=== PATIENT | female | born 1955 | race African-American/Black ===

== ENCOUNTER → 2016-09-26 | Day surgery (SDC) | payer BC ==
[~2016-09-26] MED LIST: ASPIRIN81 M2 PO; BYSTOLIC5 MG PO; FISH OIL 1,2001 CAP PO; LOTREL 10-20 M1 EACH; MULTI VITAMIN1 EACH PO; PROBIOTIC1 EAC1 PO; VITAMIN B12-FO1 EACH PO; WELLBUTRIN PO
--- NOTE | ~2016-09-26 | OR ---
Unit #: [id number] #: [id number] Patient: SATHYA PALMA [id number] [facility]. [place], [place] [address] [id number] MR#: [id number] NAME: SATHYA PALMA ROOM: Date of Procedure: 09/26/2016 Admission Date: 09/26/2016 Surgeon: Michael Kilpatrick M.D. : 1955 Attending Physician: Michael Kilpatrick M.D. Primary Care Physician: Joy Neff M.D. OPERATIVE REPORT PRIMARY CARE PHYSICIAN Joy Neff M.D. PREOPERATIVE DIAGNOSIS Colorectal cancer screening in an average-risk patient. PROCEDURE PERFORMED Colonoscopy up to cecum with fair prep and visualization. POSTOPERATIVE DIAGNOSES The patient had small to medium-sized internal hemorrhoids. Otherwise, examination was normal up to cecum. There were small areas in the right colon where there was stool residue, which could not be completely cleared. As a result, smaller diminutive lesions could have been missed during the examination. No large polyps or colon cancer could have been missed however. As a result, the patient is advised to have a repeat examination in 5 years instead of 10 years. SEDATION USED MAC. DESCRIPTION OF PROCEDURE Following detailed explanation of potential risks and complications of a colonoscopy, namely perforation, bleeding, and complication related to sedation, the patient brought to GI lab and laid in the left lateral decubitus position. A digital rectal examination was performed, which was normal. Lubricated tip of the Olympus video colonoscope was inserted through the anus and advanced under direct vision. The scope was advanced past rectosigmoid into descending colon. No diverticula were seen in this area. The scope tip was then navigated all the way up to cecum with visualization of the ileocecal valve and the appendiceal orifice. Preparation was fair with good visualization and photodocumentation was obtained. There were areas of stool residue in the right colon that could not be completely cleared despite suction. However, overall quality of the prep was good. Successive segments of the colonic mucosa were examined upon withdrawal and appeared unremarkable. There being no polyps, mass lesions, or AVMs. No diverticulosis was present. The patient did have small to medium-sized internal hemorrhoids seen at the anal verge on retroflexion. The scope was then withdrawn and the patient returned to the recovery area. She tolerated the procedure without any postprocedure complications. Unit #: [id number] #: [id number] Patient: SATHYA PALMA Dictated by..Ismael Matamoros/den TD: 09/26/2016 22:29 JOB #: [id number] OPERATIVE REPORT Page 1 of 1 X Michael Kilpatrick MD X PROCEDURE OPERATIVE NOTE
== END | disposition home or self-care (01) ==
LOC: COPS 07:13
DX: Z12.11 Encounter for screening for malignant neoplasm of colon (principal); K64.8 Other hemorrhoids; K21.9 Gastro-esophageal reflux disease without esophagitis; I10 Essential (primary) hypertension; Z88.0 Allergy status to penicillin